=== PATIENT | male | born 1970 | race Caucasian/White ===

== ENCOUNTER 2024-03-22 05:12 | Observation (INO) ==
--- NOTE | 2024-02-25 12:34 | PAT Medication Instructions ---
Medication Instructions Date of Service February 25, 2024 Home Medications Medication Instructions Recorded amoxicillin 500 mg tablet 2,000 mg (4 x 500 mg) PO ONCE #4 05/23/21 tabs melatonin 10 mg disintegrating 10 mg PO HS PRN sleep #30 tabs 02/04/23 tablet buspirone 7.5 mg tablet 7.5 mg PO BID #60 tabs 03/17/23 amoxicillin 500 mg tablet 2,000 mg (4 x 500 mg) PO ONCE melatonin 10 mg disintegrating tablet 10 mg PO HS PRN sleep buspirone 7.5 mg tablet 7.5 mg PO BID creatine monohydrate 1.5 gram/15 mL oral liquid 1 g PO QPM diphenhydramine HCl 50 mg capsule 50 mg PO HS guaifenesin 1,200 mg tablet, extended release 12 hr (Mucinex) 1,200 mg PO QPM PRN prn multivitamin 1 tab PO QAM Continue as directed amoxicillin 500 mg tablet 2,000 mg (4 x 500 mg) PO ONCE STOP taking 2 weeks before surgery (or as soon as possible if surgery is within 2 weeks) creatine monohydrate 1.5 gram/15 mL oral liquid 1 g PO QPM DO NOT take the morning of surgery multivitamin 1 tab PO QAM Take morning of surgery With a small sip of water, OTHERWISE NOTHING TO EAT OR DRINK AFTER MIDNIGHT: buspirone 7.5 mg tablet 7.5 mg PO BID Take evening before surgery melatonin 10 mg disintegrating tablet 10 mg PO HS PRN sleep (if needed) buspirone 7.5 mg tablet 7.5 mg PO BID diphenhydramine HCl 50 mg capsule 50 mg PO HS guaifenesin 1,200 mg tablet, extended release 12 hr (Mucinex) 1,200 mg PO QPM PRN prn (if needed) Other Notes If you have any questions please call us at [phone] or [phone] or [phone] or [phone]
--- NOTE | 2024-03-10 09:15 | Anesthesiology Consultation ---
Date of Service March 10, 2024 Assessment & Plan (1) Encounter for pre-operative examination: - Infectious disease screening: Per assessment on 03/10/24: No known infectious disease contacts or current infectious disease symptoms. No noted recent Covid positive test result. - Outpatient joint assessment: Pt currently scheduled for inpatient pathway. If surgeon requests review for outpatient joint pathway, patient is an acceptable candidate for outpatient joint program from anesthesia standpoint. - Anemia: Preop labs note anemia with hgb 11.9. No recent comparison labs available. Workload message sent to PCP. Awaiting PCP response regarding anemia + upcoming PCP office visit note ([facility], appt 03/11). Chart Review Chart Review: Patient seen in Pre Admission Testing Teaching & Discussion Pre-Anesthesia Teaching/Discussion Notes: Instructed NPO after midnight before surgery,except medications with 15 cc of water. Medication instructions provided according to the PAT guidelines. History Surgery Operation Date: 03/22/24 12:45 Proposed Procedures p Left Total Hip Arthroplasty - Marvin Chau MD Height/Weight Height: 6 ft 4 in Weight: 103 kg Allergies Allergy/AdvReac Type Severity Reaction Status Date / Time No Known Allergies Allergy Unverified 02/24/24 08:02 Medications Home Medications Medication Instructions Recorded Confirmed Last Taken amoxicillin 500 mg tablet 2,000 mg (4 x 500 mg) PO ONCE #4 05/23/21 02/24/24 Unknown tabs melatonin 10 mg disintegrating 10 mg PO HS PRN sleep #30 tabs 02/04/23 02/24/24 Unknown tablet creatine monohydrate 1.5 gram/15 1 g PO QPM 02/24/24 02/24/24 Unknown mL oral liquid diphenhydramine HCl 50 mg capsule 50 mg PO HS 02/24/24 02/24/24 Unknown guaifenesin 1,200 mg tablet, 1,200 mg PO QPM PRN prn 02/24/24 02/24/24 Unknown extended release 12 hr (Mucinex) multivitamin 1 tab PO QAM 02/24/24 02/24/24 Unknown buspirone 7.5 mg tablet 7.5 mg PO BID #60 tabs 03/10/24 Unknown Past Medical History Medical History Allergic rhinitis Anxiety Degenerative joint disease Depression ADA (generalized anxiety disorder) Laryngopharyngeal reflux no meds Osteoarthritis of left hip Right patellofemoral syndrome Exercise / Class Metabolic Activity II 4-5 Yardwork/Stairs/Walk up hill (one FS: no CP, no SOB) Past Family History Family History Mother Breast cancer Grandfather (Maternal) Myocardial infarction Father Heart disease Denies family history of Colon cancer Ovarian cancer Prostate cancer Past Surgical History Surgical History History of total right hip replacement Past Anesthesia History No Hx of Anesthesia Complications and No Family Hx of Anesthesia Complications History of PONV No Hx of PONV and No Hx of Motion Sickness Social History Smoking Status: Never smoker Do You Dip or Chew Tobacco: No Hx Alcohol Use: Yes Alcohol type: beer, wine and hard liquor alcohol intake frequency: a few times a month Hx Substance Use: No substance use type: does not use Review of Systems Patient denies chest pain, shortness of breath, dyspnea on exertion, fever, chills, cough, wheezing, palpitations. Physical Exam Vital Signs BP 104/69 P 72 TEMP 98.3 SP02 98%RA RESP 16 Physical Full cervical extension range of motion. Full TMJ range of motion. TMD 3.5 finger breaths Mallampati Score 3 Dentition: intact, + crowns Lungs: clear throughout to auscultation Cardiac: regular rate and rhythm, no murmurs noted Spine: normal Carotid arteries: negative bruit Extremities: no LE edema Lab Results Anesthesia Preop Results Results Anesthesia Widget: WBC 4.60 K/ul (4.8-10.8) L 03/10/24 Hgb 11.9 g/dl (14.0-18.0) L 03/10/24 Hct 36.1 % (42.0-52.0) L 03/10/24 Plt 284 K/uL (130-400) 03/10/24 Na 140 mmol/L (136-145) 03/10/24 K 4.3 mmol/L (3.5-5.1) 03/10/24 Cl 107 mmol/L (98-107) 03/10/24 CO2 28 mmol/L (21-32) 03/10/24 BUN 11 mg/dl (6-23) 03/10/24 Creat 1.35 mg/dl (0.6-1.4) 03/10/24 Glucose Level 111 mg/dl (70-99(Fasting)) H 03/10/24 PT 10.9 Seconds (9.0-12.0) 03/10/24 PTT 26 Seconds (21-31) 03/10/24 INR 1.0 (0.9-1.1) 03/10/24 Blood Type O Positive 03/10/24 Antibody Screen NEGATIVE 03/10/24 Testing Electrocardiogram Date: 03/10/24 Findings: + NSR @ (64) Chest X-Ray Date: 03/10/24 Findings: + NAD
[2024-03-22] MEDS: ACETAMINOPHEN 500 MG TAB PO SCH ×2 (05:44→14:34)
[2024-03-22] MEDS: METOCLOPRAMIDE HCL 10 MG TABLET PO SCH (05:45)
[2024-03-22] MEDS: dexAMETHasone**PF** 10 MG/ML VIAL IV SCH (05:45)
[2024-03-22] MEDS: CeleBREX 200 MG CAP PO SCH (05:45)
[2024-03-22] MEDS: Scopolamine 1 MG TDSY TD SCH (05:45)
[2024-03-22] MEDS: FAMOTIDINE 20 MG TAB PO SCH (05:45)
[2024-03-22] MEDS: LR 60ML/HR IV SCH (05:46)
[2024-03-22] MEDS: LR 500ML BOLUS, THEN 15ML/HR IV SCH (05:55)
[2024-03-22] MEDS ORDERED: BUPIVACAINE 0.5 % 5 MG/1 ML PF 10ML VIAL ONE (06:22)
[2024-03-22] MEDS ORDERED: fentaNYL citrate PF 100 MCG/2 ML VIAL ONE (06:35)
[2024-03-22] MEDS ORDERED: MIDAZOLAM HCL 1 MG/ML 2ML VIAL ONE (06:35)
[2024-03-22] MEDS ORDERED: ePHEDrine sulfate 50 MG/ML AMP IV PRN (06:37)
[2024-03-22] MEDS ORDERED: fentaNYL citrate PF 100 MCG/2 ML VIAL IV PRN (06:37)
[2024-03-22] MEDS ORDERED: ATROPINE SULFATE 0.1 MG/ML 10ML SYR IV PRN (06:37)
[2024-03-22] MEDS ORDERED: DROPERIDOL 5 MG/2 ML VIAL IV PRN (06:37)
[2024-03-22] MEDS ORDERED: PROPOFOL IV EMULSION 10 MG/ML 20 ML VIAL IV ONE ×2 (06:44→07:51)
--- NOTE | 2024-03-22 06:45 | History & Physical Bridge Note ---
Date of Service March 22, 2024 History & Physical Bridge Note I have examined the patient, reviewed the History & Physical and in the interval since the performance of the History & Physical I have noted the following changes of clinical significance: no changes noted
[2024-03-22] MEDS: TRANEXAMIC ACID 1,000 MG **IV Pre-op IV SCH (06:47)
[2024-03-22] MEDS ORDERED: LIDOCAINE 2% 2 ML VIAL/AMP(20MG/ML) INFIL ONE (06:47)
[2024-03-22] MEDS: ceFAZolin 2000MG 2,000 MG/15 ML SYR IV SCH ×2 (07:30→16:24)
[2024-03-22] MEDS: BUPIVACAINE/EPINEPHRINE 0.5% MPF 1:200,000 30 ML VIAL ONE (07:31)
--- NOTE | 2024-03-22 08:31 | Operative Report ---
[facility] Post Operative Report Pre & Post Diagnosis Operation Date: 03/22/24 07:00 Pre-Op Diagnosis: Left Hip Degenerative Joint Disease Post-Op Diagnosis: Left Hip Degenerative Joint Disease I identified the patient and participated in the time-out.: Yes Procedure Operation Date: 03/22/24 07:00 Actual Procedures p Left Total Hip Arthroplasty(Left) - Marvin Chau MD Surgeon Marvin Chau MD Program Advisor Luis Eduardo Melchor PA-C Estimated Blood Loss 150 Findings Consistent with Post-Op Diagnosis Specimens Left femoral head sent for pathology. Anesthesia Type Spinal MAC Complications none Disposition Accompanied Patient To Recovery: No Indications Patient is a 53-year-old very active gentleman whose had a long history of hip problems. He had his right hip replaced about 8 years ago. Over the past year to 2 years he developed increased pain discomfort in his left hip. The x-rays show progressive hip arthritis. He elected proceed with total hip arthroplasty. Description of Procedure Operative implants consist of: 1. Biomet G7 size 58 mm acetabular shell. 2. [place] hole chief psychology. 3. 6.5 cancellous acetabular screws 1 of 35 mm length and 1 of 20 mm length. 4. Highly cross-linked polyethylene liner with a 58 mm outer diam and 36 mm inner diameter. 5. DePuy Karaya I size 15 KLA femoral stem. 6. +8.5/36 mm ceramic articular ball. The patient was taken to the operating, identified, placed on the operating table in the supine position. All contact areas were appropriately padded. IV antibiotics tried by anesthesia team. A spinal anesthetic and abductor canal block had been provided in the holding area. The patient was then placed in the right lateral decubitus position. An axillary roll was placed. Stulberg hip positioner was used for positioning. Left hip and leg were then prepped and draped in usual sterile fashion. A posterolateral approach to the left hip was then performed to a curvilinear incision centered over the greater trochanter. Sharp dissection was carried through subcutaneous tissue down to level the IT band gluteal fascia. The IT band gluteal fascia was sized longitudinally in line with skin incision. The underlying greater bursa was excised. The piriformis Rotators along with the posterior hip joint capsule were then released from the posterior aspect the hip as a single layer. Great care was taken throughout the procedure protect the sciatic nerve at all times. The hip was internally rotated and dislocated. Femoral neck osteotomy cut was made with Final Cut about 2 cm above the lesser trochanter. Femoral head was removed and sent for pathology. The femur was retracted anteriorly. Attention drawn the acetabulum. The acetabular labrum was excised. The pulmonary fat was excised. Sequential reaming the acetabular was then performed beginning with size 47 and progressing up to a 57. I reamed a little bit with a 58 reamer and then placed a 58 mm Biomet G7 acetabular shell in about 40 degrees lateral opening and 20 degrees of anteversion. It was fixed with 2 6 and 6.5 screws. A trial liner was placed. Attention drawn the femur. The proximal femur was entered with a cookie cutter followed by canal finder. I then broached beginning the size 8 and progressing up to a 15. Get excellent fitted to 15. I trialed the hip and the hip was fully stable with a +5 articular ball. However the soft tissue tension was a bit lax so I elected to place a slightly longer . Hip was fully stable full extension and external rotation and flexion to 90 degrees internal Tatian over [address] I elected to place these implants. All trial implants were removed. An apex hole chief psychology was placed. Highly cross-linked polyethylene liner was placed. A size 15 KLA femoral stem was impacted in position. +8.5/36 mm ceramic articular ball was placed. Hip was located and once again found to be stable. Attention drawn toward closing. The wound was irrigated copious also pulsatile lavage solution. I did inject locally with 60 cc of half percent Marcaine with epinephrine. The posterior capsule and external rotators then repaired through drill holes in the posterior trochanter with #2 Tycron suture. The IT band gluteal fascia then closed in 1 PDS suture in running fashion. Subcutaneous tissues then closed with 2 layers of the deep layer #1 Vicryl suture and subcutaneous tissues with 2-0 Dexon suture in a buried interrupted fashion. Skin was closed skin jez. Leg was then cleaned and dried and sterile dressing with Xeroform, 4 fours, ABD pad, foam tape was applied. Patient then transferred to the recovery room in stable condition. Patient tolerated procedure well and there were no complications. Luis Eduardo Melchor, my physician bricklayer's assistant, was present for the entire procedure. His assistance was essential and required for appropriate patient positioning, prepping and draping, surgical exposure, performing the technical details of the operation, placement the implants, closure of the wound, and placement of the sterile bandage. I attest to the content of the Intraoperative Record and any orders documented therein. Any exceptions are noted below.
--- NOTE | 2024-03-22 09:23 | XRay Report ---
XR hip 1V LT w pelvis HISTORY: 53 years-old Male IN PACU - Post Surgical left hip arthroplasty COMPARISON: 05/30/2019 TECHNIQUE: AP view of the pelvis with crosstable lateral view of the left hip FINDINGS: Unchanged appearance of the right hip arthroplasty. Left hip arthroplasty is unremarkable with latera l skin jez, expected postoperative soft tissue swelling with deep tissue air. No acute fracture o r unexpected opaque foreign body. IMPRESSION: Left hip arthroplasty with expected postoperative changes. ACT 112: Negative or not required by law. The above report was generated using voice recognition software. It may contain grammatical, syntax o r spelling errors. Electronically signed by: Miguel Angel Oropeza M.D. 03/22/2024 9:21 AM
[2024-03-22] MEDS ORDERED: guaiFENesin 600 MG TABCR PO PRN (09:32)
[2024-03-22] MEDS ORDERED: SENNA 8.6 MG TAB PO SCH (09:32)
[2024-03-22] MEDS ORDERED: METOCLOPRAMIDE HCL INJ 5 MG/ML 2 ML VIAL IV PRN (09:32)
[2024-03-22] MEDS ORDERED: ALUMINUM/MAGNESIUM SUSP 30 ML UDC PO PRN (09:32)
[2024-03-22] MEDS ORDERED: TAMSULOSIN HCL 0.4 MG CAP PO PRN (09:32)
[2024-03-22] MEDS ORDERED: NON-FORMULARY MEDICATION (Multivitamin tablet) PO SCH (09:32)
[2024-03-22] MEDS ORDERED: HYDROmorphone INJ 0.5 MG/0.5 ML SYR IV PRN (09:32)
[2024-03-22] MEDS ORDERED: traMADol HCL 50 MG TABLET PO PRN (09:32)
[2024-03-22] MEDS ORDERED: diphenhydrAMINE Capsule 25 MG CAP PO PRN (09:32)
[2024-03-22] MEDS ORDERED: bisacodyL 10 MG SUPP PR PRN (09:32)
[2024-03-22] MEDS ORDERED: ONDANSETRON INJ 2 MG/ML 2 ML VIAL IV PRN (09:32)
[2024-03-22] MEDS ORDERED: NALOXONE HCL 0.4 MG/1 ML VIAL/CARP IV PRN (09:32)
[2024-03-22] MEDS ORDERED: MAGNESIUM HYDROXIDE SUSP 30 ML UDC PO PRN (09:32)
[2024-03-22] MEDS: SODIUM CHLORIDE 0.9% 1,000 ML IV SCH (09:47)
[2024-03-22] MEDS: ASPIRIN 81 MG ECTAB PO SCH (10:18)
[2024-03-22] MEDS: busPIRone 7.5 MG TAB PO SCH (10:18)
[2024-03-22] MEDS: DOCUSATE SODIUM 100 MG CAP PO SCH (10:19)
[2024-03-22] MEDS: KETOROLAC 30 MG/ML VIAL IV SCH (10:19)
--- NOTE | 2024-03-22 11:14 | Anesthesiology Progress Note ---
Date of Service March 22, 2024 Anesthesia Post Procedure Vital Signs Vital Signs: Temp Pulse Pulse Resp BP Pulse Ox O2 Del Method 03/22/24 10:34 36.5 C 63 16 121/74 99 Room Air 03/22/24 09:59 36.4 C L 58 L 16 123/79 100 Room Air 03/22/24 09:30 36.4 C L 64 16 132/79 100 Room Air 03/22/24 09:15 36.5 C 63 19 139/71 100 Room Air 03/22/24 09:00 36.1 C L 62 15 127/68 100 Room Air 03/22/24 08:50 65 18 130/68 99 Room Air 03/22/24 08:40 67 12 128/58 L 100 Room Air 03/22/24 08:30 68 12 119/64 100 Oxymask 03/22/24 08:22 36.1 C L 74 12 127/54 L 100 Oxymask 03/22/24 05:38 36.5 C 64 20 119/70 99 Room Air O2 Flow Rate 03/22/24 10:34 03/22/24 09:59 03/22/24 09:30 03/22/24 09:15 03/22/24 09:00 03/22/24 08:50 03/22/24 08:40 03/22/24 08:30 3 03/22/24 08:22 6 03/22/24 05:38 Notes Mental Status: alert / awake / arousable Patient Amnestic to Procedure: Yes Nausea / Vomiting: adequately controlled Pain: adequately controlled Airway Patency, RR, SpO2: stable & adequate BP & HR: stable & adequate Hydration State: stable & adequate Neuraxial Anesthesia: was administered and sensory block is resolving Anesthetic Complications: no major complications apparent
[2024-03-22] MEDS: MULTIVITAMIN TAB PO SCH (12:02)
[2024-03-22] MEDS: TRANEXAMIC ACID / 0.7% NACL 1,000 MG/100 ML BAG IV SCH (14:53)
[2024-03-22] MEDS: Scopolamine CHECK PATCH PLACEMENT SCH (16:05)
[2024-03-22] MEDS: ASCORBIC ACID 500 MG TAB PO SCH (16:31)
[2024-03-22] MEDS: SENNA 8.6 MG TAB PO SCH (20:55)
[2024-03-22] MEDS: diphenhydrAMINE Capsule 25 MG CAP PO SCH (20:56)
[2024-03-22] MEDS ORDERED: CREATINE MONOHYDRATE PO SCH (21:00)
[2024-03-22] MEDS: MELATONIN 3 MG TAB PO PRN (23:45)
[2024-03-23 06:35] LABS: Basophils # (auto) 0.02 K/uL (0.00-0.20); Basophils % (auto) 0.2 %; Eosinophils # (auto) 0.01 K/uL (0.00-0.50); Eosinophils % (auto) 0.1 %; Hemoglobin 10.1 g/dl (14.0-18.0); Immature Granulocytes # (auto) 0.06 K/uL (0.01-0.20); Immature Granulocytes % (auto) 0.6 %; Lymphocytes # (auto) 1.35 K/uL (1.20-3.40); Lymphocytes % (auto) 12.6 %; Mean Corpuscular Hemoglobin 29.7 pg (25.0-34.0); Mean Corpuscular Hgb Conc 33.7 g/dL (32.0-36.0); Mean Corpuscular Volume 88.2 fL (80.0-100.0); Mean Platelet Volume 8.8 fL (9.4-12.4); Monocytes # (auto) 1.04 K/uL (0.11-0.59); Monocytes % (auto) 9.7 %; Neutrophils # (auto) 8.27 K/uL (1.40-6.50); Neutrophils % (auto) 76.8 %; Platelet Count 231 K/uL (130-400); RDW Coefficient of Variation 12.3 % (11.5-14.5); RDW Standard Deviation 39.5 fL (36.4-46.3); White Blood Count 10.75 K/ul (4.8-10.8)
[2024-03-23 06:42] LABS: BUN Creatinine Ratio 10.9 (10-20); Calcium 8.2 mg/dl (8.6-10.3); Creatinine Clr Calc Pharmacy 82.9 ml/min; Est GFR (African American) 74.1 ml/min; Est GFR (Non-African American) 63.9 ml/min; Potassium 3.7 mmol/L (3.5-5.1)
[2024-03-23] MEDS: dexAMETHasone 10 MG in SYRINGE 0 ML IV SCH (08:09)
--- NOTE | 2024-03-23 11:01 | Orthopedic Progress Note ---
Date of Service March 23, 2024 Assessment & Plan (1) Osteoarthritis of left hip: (2) S/P total left hip arthroplasty: Plan 53-year-old gentleman POD# 1 s/p left total hip replacement, doing well overall. Pain is relatively well-controlled. Medically stable. Prosthetic hip is located and postoperative radiographs are well-appearing. He is neurologically intact. Plan: 1. DVT prophylaxis w/ thigh-high TEDs, SCDs, ASA 81 mg BID. 2. PT/OT as tolerated. WBAT on L LE. Left posterolateral approach total hip precautions/protocol. 3. Pain control doing well with current pain regimen. 4. Disposition - plan to D/C home w/ self-care later today once cleared by P T/OT. 5. F/u as scheduled w/ first post-op visit. Admission and Anticipated Discharge Date Admission Date: March 22, 2024 Subjective Patient is POD# 1 s/p left total hip arthroplasty by Dr. Chau on 03/22/2024. Patient says his pain is well-controlled this morning. Denies CP, SOB, N/V, L LE paresthesia. He has had a right ABDON previously, and so is familiar with the postoperative course and will be returning home to self-care and assistance from his and daughter. Patient says that he will be ready to go home today. Physical Exam Physical Exam: GENERAL: AA&Ox3, NAD. Pleasant, affect is calm. Sitting in bed and appears comfortable. RESPIRATORY: Normal respiratory effort with no signs of distress. CHEST/AXILLA: Chest movement symmetrical. No deformities noted. CARDIOVASCULAR: No edema noted. SKIN: [place], warm and dry. MS/EXTREMITY: Hip dressing c/d/i. CHAYO hose donned to contralateral LE. Thigh is soft, supple. Leg lengths are equal. + ankle dorsi/plantarflexion. NVI distally. Calf soft/NT. PT/DP intact. Results & Data Vital Signs (Past 12 Hours) Vital Signs Temp Pulse Pulse Resp BP Pulse Ox O2 Del Method 03/23/24 07:43 36.8 C 71 16 113/73 97 Room Air 03/23/24 02:47 36.9 C 66 16 148/73 H 98 Room Air Laboratory Results Laboratory Results - last 48 hr 03/23/24 06:02 WBC 10.75 RBC 3.40 L Hgb 10.1 L Hct 30.0 L MCV 88.2 MCH 29.7 MCHC 33.7 RDW Std Deviation 39.5 RDW Coeff of Denae 12.3 Plt Count 231 MPV 8.8 L Immature Gran % (Auto) 0.6 Neut % (Auto) 76.8 Lymph % (Auto) 12.6 Sac % (Auto) 9.7 Eos % (Auto) 0.1 Baso % (Auto) 0.2 Neut # (Auto) 8.27 H Lymph # (Auto) 1.35 Sac # (Auto) 1.04 H Eos # (Auto) 0.01 Baso # (Auto) 0.02 Immature Gran # (Auto) 0.06 Sodium 139 Potassium 3.7 Chloride 108 H Carbon Dioxide 26 Anion Gap 5 BUN 14 Creatinine 1.28 Est Cr Clr Drug Dosing 82.9 Est GFR ( Amer) 74.1 Est GFR (Non-Af Amer) 63.9 BUN/Creatinine Ratio 10.9 Glucose 106 H Calcium 8.2 L Diagnostic Findings Hip/Pelvis X-Ray 03/22/24 08:24 XR hip 1V LT w pelvis HISTORY: 53 years-old Male IN PACU - Post Surgical left hip arthroplasty COMPARISON: 05/30/2019 TECHNIQUE: AP view of the pelvis with crosstable lateral view of the left hip FINDINGS: Unchanged appearance of the right hip arthroplasty. Left hip arthroplasty is unremarkable with lateral skin jez, expected postoperative soft tissue swelling with deep tissue air. No acute fracture or unexpected opaque foreign body. IMPRESSION: Left hip arthroplasty with expected postoperative changes. ACT 112: Negative or not required by law. The above report was generated using voice recognition software. It may contain grammatical, syntax or spelling errors. Electronically signed by: Miguel Angel Oropeza M.D. 03/22/2024 9:21 AM
--- NOTE | 2024-03-23 11:01 | Discharge Summary ---
Date of Service March 23, 2024 Admission HPI Per Admitting Provider Chief Complaint: 1. Persistent and progressive left hip pain and discomfort. 2. Right knee pain. History of Present Illness: The patient is a 53-year-old gentleman well known t o me from previous right hip replacement 8 years ago. The right hip has done well. He has got a known history of hip dysplasia on the left side. I have not seen him for a couple of years. He has developed increased pain and discomfort in his left hip. He describes some groin pain, lateral hip pain radiating down to his knee. No real numbness. He continues to exercise and lift weights regularly. He is having quite a bit of more pain in this area. With respect to the right knee, he has developed some increased pain in the front of his knee. It is fairly fleeting. No swelling. No real treatment to date. ASSESSMENT/DIAGNOSES: This is a 53-year-old male 8 years out from a right hip replacement with: 1. 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 He is starting to have more symptoms and he is starting to limit his activities. 2. Right knee pain consistent with some patellofemoral pain and chondral disease of the patella. Maybe a little bit of prepatellar bursitis as well. PLAN: Encounter Actions: We talked about treatment. With respect to the right knee, it is not bothering him enough to worry too much about. Encouraged him to stay active. Probably as far as lifting, avoid the leg extension, machine and stick to more squats and leg presses. With respect to this hip, we talked about treatment which would be hip replacement. Whenever he wants to do it, we could consider doing that. Hip x- rays are bad enough to warrant that. Having said that, we can do that any time he wants. There is no hurry. If he decides he wants to do it, he will call in and schedule. Otherwise, I will see him back as needed. Admission Exam Per Admitting Provider Physical Exam:Gen: Examination shows a pleasant, healthy, middle-aged male. Musculoskeletal: Examination of the left hip reveals the walks with just a slight bit of a limp. He is a little bit shorter on this side compared to the opposite side. He does have limited motion and pain with hip internal rotation. Negative straight leg raise. No knee effusion. Examination of the right knee reveals little tenderness around his patella. I do not detect any real swelling. Maybe a little bit of thickening of his prepatellar bursa. Range of motion is 0 to 135. No instability. No particular pain with hip motion on this side. XR Exam: Low AP pelvis andAP and lateral of the left hip from today were reviewed. It shows pretty advanced hip arthritis. He has got a valgus angle to his femoral neck. He has got cystic changes. It has progressed since his films several years ago. He got a little bit of subluxation of the femoral head. Four views of the right knee were also reviewed. It shows a fairly well- preserved knee joint space. Minimal arthritic change. No signs of fracture or other more concerning pathology. Principal Diagnosis Same as "Discharge Diagnosis" noted below under Discharge Instructions. Discharge Exam GENERAL: AA&Ox3, NAD. Pleasant, affect is calm. Sitting in bed and appears comfortable. RESPIRATORY: Normal respiratory effort with no signs of distress. CHEST/AXILLA: Chest movement symmetrical. No deformities noted. CARDIOVASCULAR: No edema noted. SKIN: [place], warm and dry. MS/EXTREMITY: Hip dressing c/d/i. CHAYO hose donned to contralateral LE. Thigh is soft, supple. Leg lengths are equal. + ankle dorsi/plantarflexion. NVI distally. Calf soft/NT. PT/DP intact. Discharge Data Allergies Allergy/AdvReac Type Severity Reaction Status Date / Time No Known Allergies Allergy Verified 03/22/24 05:41 Procedures Performed Operation Date: 03/22/24 07:00 Actual Procedures p Left Total Hip Arthroplasty(Left) - Marvin Chau MD Ordered Studies Hip/Pelvis X-Ray 03/22/24 08:24 XR hip 1V LT w pelvis HISTORY: 53 years-old Male IN PACU - Post Surgical left hip arthroplasty COMPARISON: 05/30/2019 TECHNIQUE: AP view of the pelvis with crosstable lateral view of the left hip FINDINGS: Unchanged appearance of the right hip arthroplasty. Left hip arthroplasty is unremarkable with lateral skin jez, expected postoperative soft tissue swelling with deep tissue air. No acute fracture or unexpected opaque foreign body. IMPRESSION: Left hip arthroplasty with expected postoperative changes. ACT 112: Negative or not required by law. The above report was generated using voice recognition software. It may contain grammatical, syntax or spelling errors. Electronically signed by: Miguel Angel Oropeza M.D. 03/22/2024 9:21 AM Hospital Course (1) Osteoarthritis of left hip: (2) S/P total left hip arthroplasty: On March 22, 2024 Tommy arrived at [facility] operating room and underwent a left total hip replacement without complications. Patient had a spinal anesthetic for the procedure. Postoperatively, patient was transferred to the general orthopedic floor in stable condition and eventually started onto aspirin 81 mg twice daily for DVT prophylaxis as appropriate. Patient's hospital course was uneventful. On postoperative day #1, patient's vital signs were stable and pain was well-controlled. Patient was able to participate well with physical therapy, safely performing the necessary ambulation and range of motion exercises and properly demonstrating ADL tasks. Patient was then discharged home in stable condition, with self-care and assistance from his and daughter. Patient will follow-up with orthopedics in 2 to 3 weeks for postoperative care. Plan 53-year-old gentleman POD# 1 s/p left total hip replacement, doing well overall. Pain is relatively well-controlled. Medically stable. Prosthetic hip is located and postoperative radiographs are well-appearing. He is neurologically intact. Plan: 1. DVT prophylaxis w/ thigh-high TEDs, SCDs, ASA 81 mg BID. 2. PT/OT as tolerated. WBAT on L LE. Left posterolateral approach total hip precautions/protocol. 3. Pain control doing well with current pain regimen. 4. Disposition - plan to D/C home w/ self-care later today once cleared by PT/OT. 5. F/u as scheduled w/ first post-op visit. Total Time Total Time Spent Total Time Spent (In Minutes): Total Time Spent with Patient: Total time spent is greater than 50% in coordination of care (as documented) at patient's floor/unit and/or counseling patient: Discharge Plan Discharge Items Patient Disposition: Home - Self-Care Reason For Visit: Left Hip Degenerative Joint Disease Discharge Diagnosis: Left Hip Replacement Activity: Per Instructions section Activity Comment: Follow/Obey hip precautions at all times. Weightbearing: Full weightbearing Weightbearing Comment: Weightbear as tolerated obeying hip precautions at all times. Non-emergency contact: Surgeon Call non-emergency contact if: you have any medication questions Follow-up/Referrals: ,Dung A., DO [Primary Care Provider] - Diet: Regular Addtl Attending Provider Instructions: ACTIVITY RECOMMENDATIONS: Physical Therapy: * Aggressive physical therapy is not usually needed. You will learn to take care of yourself safely and walk. * Follow the "Hip Precautions Instructions." * In some cases, the professor of social work at the hospital will arrange to have a therapist come to your house for the first couple of weeks to help you learn these skills. * You need to practice on your own or with the help of a family member as needed. * When you learn these skills, most of the therapy can be done on your own. Home Exercise: * You were shown a series of exercises in the hospital. Do these exercises three to four times each day including the exercises you were shown in physical therapy. Walking: * Get up and walk several times each day. For the first four weeks, try not to stand or walk for more than one hour at a time. If you do stand or walk for more than one hour, you will not hurt anything, but your leg will likely swell. * As you feel comfortable, you may change from the walker or crutches to a cane and then to independent walking. MEDICATIONS: New Medicine: * You will likely be taking one or more of these medicines: 1. Tramadol - Take, as directed, when you need it, every six hours to control your pain. 2. Aspirin - Thins your blood to lessen the chance of forming a blood clot. * The most common side effects of pain medicine and iron are nausea and constipation. If nausea or constipation is too much of a problem or if you have any questi ons about your new medicines or doses, call [facility] at [phone]. We will try to help you manage these issues. "VERY IMPORTANT TO READ AND REVIEW" Pain: * The immediate post-operative period after hip replacement surgery is often quite painful. * You are given a prescription for pain medicine. You should take it, as directed, when you need it, especially before physical therapy and before going to bed. Pain that interferes with sleep is very common and can last several months. * You will likely need pain medicine for the first two to four weeks. It will not stop all of the pain. The pain will lessen and as you feel better, you may change to milder pain medicine such as Tylenol. * The most common side effects of pain medicine are nausea and constipation, so don't take more than you need. SPECIAL CARE INSTRUCTIONS: TEDs/Elastic Stockings: * The white elastic stockings help limit swelling and prevent blood clots from forming in your legs. The more you wear them, the more they work. * Wear them for six weeks. Incision Site Care: * Remove dressing postoperative day 2 and then shower. Keep direct shower pressure off the incision site. * After showering, cover jez with dry gauze and change daily or more frequently if the dressing is getting saturated with drainage. * May completely stop using bandage if wound is dry and no drainage * Jez are removed between 2 and 3 weeks post-op. If your follow-up appointment is made before 2 weeks, please have your appointment re- scheduled. It is too early to remove the jez. Prevention of Infection: * Take antibiotics one hour before any dental cleaning, dental work, urological procedure, gastrointestinal procedure or any invasive surgery in order to prevent your new joint from getting infected. * You may get the antibiotics from the doctor performing the procedure or you may call our office at before and we will call in a pr escription to the pharmacy of your choice. Things to Watch For: * Drainage from the incision site that occurs more than one week after your surgery. * Severely increased leg pain or swelling. * Increased redness at the incision site. * Fever above 102 degrees Fahrenheit. * Unusual chest pain or shortness of breath. * Unusual pain or burning with urination. Call [facility] at with any of the above problems or if you have any questions about your medicines or recovery. FOLLOW UP VISIT: Make an appointment to see your doctor for approximately two weeks after surgery for a progress check and staple removal by calling the office at . Pending Studies at Discharge: No Stand-Alone Forms: My [facility] [employer], Pain - Opioid Pain Management, Smoking Cessation Medications and DC Order Prescriptions: Continued amoxicillin 500 mg tablet 2,000 mg PO ONCE Qty: 4 3RF Rx Instructions: 4 tabs 1 hour prior to procedure buspirone 7.5 mg tablet 7.5 mg PO BID Qty: 60 11RF (DME) Wheeled Walker Misc See Rx Instructions .MEDSUPPLY Qty: 1 0RF Rx Instructions: As directed tramadol 50 mg tablet 50 - 100 mg PO Q6 PRN (Reason: pain) Qty: 40 0RF Rx Instructions: Take as needed for pain ondansetron 4 mg tablet,disintegrating 4 mg PO Q8 PRN (Reason: nausea) Qty: 20 1RF Rx Instructions: Take as needed for nausea ketorolac 10 mg tablet 10 mg PO Q6 5 Days Qty: 20 0RF Rx Instructions: Take 4 times per day with food for 5 days to lessen pain and swelling. sennosides [Senokot] 8.6 mg tablet 8.6 mg PO BID 14 Days Qty: 28 0RF Rx Instructions: Take two times a day to prevent/treat constipation acetaminophen [Tylenol Extra Strength] 500 mg tablet 1,000 mg PO TID 30 Days Qty: 180 0RF Rx Instructions: Take 3 times per day to lessen pain. aspirin [Mayra Low Dose Aspirin] 81 mg tablet,delayed release (DR/EC) 81 mg PO BID 45 Days Qty: 90 0RF Rx Instructions: Take to prevent blood clots. melatonin 10 mg tablet,disintegrating 10 mg PO HS PRN (Reason: sleep) Qty: 30 0RF diphenhydramine HCl 50 mg Capsule 50 mg PO HS guaifenesin [Mucinex] 1,200 mg Tablet Extended Release 12hr 1,200 mg PO QPM PRN (Reason: prn) multivitamin Tablet 1 tab PO QAM creatine monohydrate 1.5 gram/15 mL liquid 1 g PO QPM Discharge Orders: Discharge Order (Routine); Ordered 03/23/24 Ordered By: Chilango Chaudhary/Other Patient Handouts: DVT Post Op Prevention, Hip Precautions Admission Data Admit Date/Time: 03/22/24 08:24 Attending Provider: Marvin Chau Admit Provider: Marvin Chau Primary Care Provider: Dung Miller Other Interventions: Discharge Summary Assessment (RN) Last Done: 03/23/24 12:00
== END 2024-03-23 13:25 | disposition home or self-care (01) ==
LOC: ASU 05:12 → 3E 05:12